=== PATIENT | female | born 1970 | race Caucasian/White ===

== ENCOUNTER 2017-06-27 08:51 | Emergency (ER) | payer MEDICAID ==
[~2017-06-27] VITALS: Ht 154.9 cm; Wt 113.0 kg
[~2017-06-27 08:51] MED LIST: CIPRO; HYDR-519; OMEP20CA10 PO; PHEN-819
[2017-06-27] MEDS ORDERED: KETOROLAC 60MG/2ML VIAL IM ONE (10:00)
[2017-06-27 10:26] VITALS: BP 150/89
[2017-06-27 10:30] LABS: HCG SCREEN NEGATIVE
== END 2017-06-27 11:42 | disposition home or self-care (01) ==
LOC: ER 08:51
DX: M79.641 Pain in right hand (principal)
CPT/HCPCS: 84703; 96372; 99283; J1885

== ENCOUNTER 2017-09-11 10:56 | Emergency (ER) | payer MEDICAID, OTHER ==
[~2017-09-11] VITALS: Ht 157.5 cm; Wt 123.0 kg
[~2017-09-11 10:56] MED LIST changes: -PHEN-819; +[UNRECOGNIZED DRUG - CODE]
[2017-09-11] MEDS ORDERED: KETOROLAC 30MG/ML VIAL IM ONE (11:45)
[2017-09-11 13:09] VITALS: BP 134/66
== END 2017-09-11 13:15 | disposition home or self-care (01) ==
LOC: ER 10:56
DX: S63.8X1A Sprain of other part of right wrist and hand, initial encounter (principal); W01.0XXA Fall on same level from slipping, tripping and stumbling without subsequent striking against object, initial encounter; Y93.89 Activity, other specified; Y92.89 Other specified places as the place of occurrence of the external cause; Y99.8 Other external cause status
CPT/HCPCS: 73110; 73130; 96372; 99284; J1885

== ENCOUNTER 2018-08-22 00:29 | Emergency (ER) | payer MEDICAID, OTHER ==
[~2018-08-22] VITALS: Ht 157.5 cm; Wt 116.0 kg
[2018-08-22 03:30] VITALS: BP_SYST 125
[2018-08-22] MEDS ORDERED: ACETAMINOPHEN 500MG TABLET PO ONE (03:30)
[2018-08-22 06:48] VITALS: BP_DIAS 85
== END 2018-08-22 06:54 | disposition home or self-care (01) ==
LOC: ER 00:29
DX: M79.671 Pain in right foot (principal); B35.1 Tinea unguium; I25.10 Atherosclerotic heart disease of native coronary artery without angina pectoris; E11.9 Type 2 diabetes mellitus without complications; E78.00 Pure hypercholesterolemia, unspecified; I10 Essential (primary) hypertension; Z90.710 Acquired absence of both cervix and uterus; Z98.890 Other specified postprocedural states
CPT/HCPCS: 73630; 99284

== ENCOUNTER 2019-09-23 18:36 | Emergency (ER) | payer MEDICAID ==
[~2019-09-23] VITALS: Ht 154.9 cm; Wt 125.0 kg
[~2019-09-23 18:36] MED LIST changes: -OMEP20CA10 PO; +OMEP20CA5 PO; +PHEN-815; -[UNRECOGNIZED DRUG - CODE]
[2019-09-23] MEDS ORDERED: ASPIRIN 81MG TABLET PO ONE (22:00)
[2019-09-23] MEDS ORDERED: FUROSEMIDE 40MG/4ML VIAL IV ONE (22:00)
[2019-09-23 23:00] LABS: CHLORIDE 106 mEq/L (98-107)
[2019-09-23 23:02] LABS: BASOPHILS % 0.3 % (0.0-2.0); EOSINOPHILS % 2.8 % (0.0-5.0); HEMATOCRIT. 42.6 % (36.0-48.0); HEMOGLOBIN. 14.8 g/dL (12.0-16.0); LYMPHOCYTES % 23.2 % (20.0-50.0); MEAN CORPUSCULAR HEMOGLOBIN 31.7 pg (28.0-32.0); MEAN CORPUSCULAR VOLUME 91.4 fL (81.0-99.0); MEAN PLATELET VOLUME 8.2 fl (7.4-10.4); MONOCYTES % 7.1 % (2.0-8.0); NEUTROPHILS % 66.6 % (40.0-76.0); PLATELET 249 x1000/uL (130-400); RED BLOOD CELL COUNT 4.66 mill/uL (4.2-5.4); RED CELL DISTRIBUTION WIDTH 13.7 % (11.6-14.6)
[2019-09-24 00:25] VITALS: BP 134/84
== END 2019-09-24 00:26 | disposition home or self-care (01) ==
LOC: ER 18:36 → CANBEDREQ 09-24 03:26
DX: G47.30 Sleep apnea, unspecified (principal); R05 Cough; I10 Essential (primary) hypertension; E11.9 Type 2 diabetes mellitus without complications; E78.00 Pure hypercholesterolemia, unspecified
CPT/HCPCS: 36415; 71045; 80053; 83880; 84484; 85025; 93005; 96374; 99284; J1940; Z7610